=== PATIENT | male | born 1960 | race Two or more races ===

== ENCOUNTER 2018-12-02 18:37 | Emergency (ER) | payer SELFPAY ==
[~2018-12-02] VITALS: Ht 175.3 cm; Wt 99.8 kg
[2018-12-02 18:57] VITALS: BP 139/88
[2018-12-02] MEDS ORDERED: ACETAMINOPHEN/CODEINE#3 (300/30mg) TAB PO ONE (21:15)
[2018-12-02] MEDS ORDERED: cefTRIAXone SOD 1,000 MG VL IM ONE (21:15)
[2018-12-02] MEDS ORDERED: TETANUS-DIPTH-ACEL PERTUSSIS 0.5ML SYRG IM ONE (21:15)
[2018-12-02] MEDS ORDERED: AMOXICILLIN/CLAVUL 875 MG TAB PO ONE (21:15)
== END 2018-12-02 21:37 | disposition home or self-care (01) ==
LOC: ER 18:50
DX: S91.051A Open bite, right ankle, initial encounter (principal); W54.0XXA Bitten by dog, initial encounter; Y93.89 Activity, other specified; Y99.8 Other external cause status; Y92.89 Other specified places as the place of occurrence of the external cause
CPT/HCPCS: 73590; 90471; 90715; 96372; 99283; J0696